=== PATIENT | female | born 1960 | race Caucasian/White ===

== ENCOUNTER → 2019-06-28 00:01 | Outpatient (BNVA) | payer OTHER, SELFPAY | PROVIDERS: Family Provider Family Medicine; PCP Nurse Practitioner; Visit Provider Nurse Practitioner Family | DX: I10 Essential (primary) hypertension (principal); E78.2 Mixed hyperlipidemia; R53.83 Other fatigue; Z79.899 Other long term (current) drug therapy; E55.9 Vitamin D deficiency, unspecified; J44.9 Chronic obstructive pulmonary disease, unspecified; J44.0 Chronic obstructive pulmonary disease with (acute) lower respiratory infection; J20.9 Acute bronchitis, unspecified | CPT/HCPCS: 80053; 80061; 82306; 83036; 84439; 84443; 84481; 85025 ==

== ENCOUNTER → 2019-07-04 00:01 | Outpatient (BNVA) | payer OTHER, SELFPAY | PROVIDERS: Family Provider Family Medicine; PCP Nurse Practitioner; Visit Provider Nurse Practitioner Family | DX: I10 Essential (primary) hypertension (principal); I44.7 Left bundle-branch block, unspecified; R09.89 Other specified symptoms and signs involving the circulatory and respiratory systems; I35.8 Other nonrheumatic aortic valve disorders | CPT/HCPCS: 81001 ==

== ENCOUNTER 2019-10-24 08:49 | Outpatient (CLI) | payer OTHER, SELFPAY ==
--- NOTE | 2019-10-24 08:56 | USCV_ITS ---
Delphine Mcmullen Age: 59 Gender: F : 1960 Exam Date: 10/24/2019 09:17 Ordering Phys: Katerina Warner MD ([email or web address]) Technologist: Jody Taylor Exam Location: [facility] [place] Indication: L BUNDLE BRANCH BLOCK BP: 141 / 67 HR: 73 Rhythm: Sinus Technical Quality: Fair MEASUREMENTS (Male / Female) Normal Values 2D ECHO LV Diastolic Diameter PLAX 4.1 cm 4.2 - 5.9 / 3.9 - 5.3 cm LV Systolic Diameter PLAX 2.6 cm IVS Diastolic Thickness 1.5 cm 0.6 - 1.0 / 0.6 - 0.9 cm IVS Systolic Thickness 1.3 cm LVPW Diastolic Thickness 0.8 cm 0.6 - 1.0 / 0.6 - 0.9 cm LVPW Systolic Thickness 1.2 cm LVOT Diameter 2.0 cm LV Ejection Fraction 2D Teich 64.9 % LV Ejection Fraction MOD 2C 62.6 % LV Ejection Fraction 2C AL 62.3 % LA Diameter 3.3 cm Aorta at Sinotubular Diameter 2.5 cm M-MODE LV Diastolic Diameter MM 4.3 cm 4.2 - 5.9 / 3.9 - 5.3 cm LV Systolic Diameter MM 2.2 cm LV Ejection Fraction MM Teich 80.6 % IVS Diastolic Thickness MM 1.1 cm 0.6 - 1.0 / 0.6 - 0.9 cm IVS Systolic Thickness MM 1.3 cm LVPW Diastolic Thickness MM 0.7 cm 0.6 - 1.0 / 0.6 - 0.9 cm LVPW Systolic Thickness MM 1.9 cm RV Diastolic Diameter MM 1.4 cm Aortic Annulus Diameter 2.6 cm LA Ao Ratio MM 1.3 MV E Point Septal Separation 0.4 cm DOPPLER AV Peak Velocity 193.0 cm/s LVOT Peak Velocity 128.0 cm/s AV Area Cont Eq vti 2.5 cm squared AV Area Cont Eq pk 2.1 cm squared MV Area PHT 3.0 cm squared Mitral E to A Ratio 0.8 MV E' Velocity 7.0 cm/s Mitral E to MV E' Ratio 5.4 Mitral E to LV E' Lateral Ratio 8.3 Mitral E to LV E' Septal Ratio 4.0 TR Peak Velocity 239.5 cm/s TR Peak Gradient 22.9 mmHg TR Mean Velocity 192.1 cm/s TR Mean Gradient 15.8 mmHg TR Velocity Time Integral 66.4 cm TV Peak E Velocity 64.0 cm/s Right Atrial Pressure 3.0 mmHg Pulmonary Artery Systolic Pressu 25.9 mmHg PV Peak Velocity 87.0 cm/s FINDINGS Left Ventricle Normal left ventricular cavity size. Increased left ventricular wall thickness. Normal left ventricular systolic function. Left ventricular ejection fraction is estimated at 65 %. No regional wall motion abnormalities. Abnormal septal motion consistent with conduction abnormality. Normal diastolic function. Right Ventricle Normal right ventricular size and systolic function. Right ventricular systolic pressure 25.9 mmHg. Right Atrium Right atrial pressure estimated at 3 mmHg. Left Atrium Normal left atrial size. Mitral Valve Structurally normal mitral valve. No mitral valve stenosis. Mild mitral valve regurgitation. Aortic Valve Structurally normal trileaflet aortic valve. No aortic valve stenosis. No aortic valve regurgitation. Tricuspid Valve Structurally normal tricuspid valve. Trace to mild tricuspid valve regurgitation. Pulmonic Valve No pulmonary valve stenosis. Trace pulmonary valve regurgitation. Pericardium No pericardial effusion. Normal-sized inferior vena cava. Aorta Normal-sized aortic root. CONCLUSIONS 1. Normal left ventricular cavity size and systolic function. Increased left ventricular wall thickness. Left ventricular ejection fraction is estimated at 65 %. No regional wall motion abnormalities. Normal diastolic function. 2. Normal right ventricular size and systolic function. 3. Pulmonary artery pressure estimated at 26 mmHg. 4. Mild mitral valve regurgitation. 5. No prior similar studies to compare. Katerina Warner MD (Electronically Signed) Final Date: 24 October 2019 13:24 S
== END 2019-10-24 08:50 | disposition home or self-care (01) ==
LOC: RAD 08:50
PROVIDERS: PCP Nurse Practitioner; Visit Provider Internal Medicine Cardiovascular Disease
DX: I44.7 Left bundle-branch block, unspecified (principal); I34.0 Nonrheumatic mitral (valve) insufficiency
CPT/HCPCS: 93306

== ENCOUNTER → 2019-11-06 10:30 | Outpatient (BNVA) | payer OTHER, SELFPAY | PROVIDERS: PCP Nurse Practitioner; Visit Provider Internal Medicine Cardiovascular Disease | DX: E78.5 Hyperlipidemia, unspecified (principal); J44.9 Chronic obstructive pulmonary disease, unspecified; F17.200 Nicotine dependence, unspecified, uncomplicated; R00.2 Palpitations; I10 Essential (primary) hypertension; I44.7 Left bundle-branch block, unspecified; F17.210 Nicotine dependence, cigarettes, uncomplicated | CPT/HCPCS: 80053; 80061; 84443 ==

== ENCOUNTER 2020-06-03 00:10 | Emergency (ER) | payer SELFPAY ==
[2020-06-03 00:20] VITALS: PULSE 81
--- NOTE | 2020-06-03 00:20 | ECG_ITS ---
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 Measurements Intervals [place] Rate: 76 P: 77 [place]: 155 QRS: -34 QRSD: 150 T: 84 QT: 429 QTc: 483 Interpretive Statements SINUS RHYTHM MARKED LEFT AXIS DEVIATION [QRS AXIS < -30] LEFT BUNDLE BRANCH BLOCK [120+ ms QRS DURATION, 80+ ms Q/S IN V1/V2, 85+ ms R IN I/aVL/V5/V6] Compared to ECG 01/04/2019 11:17:25 No significant changes Electronically Signed On 06-03-2020 19:47:24 CDT by Mary Brown M.D. [id number]
--- NOTE | 2020-06-03 00:20 | XR_ITS ---
WS: [id number] Portable AP upright chest, 06/03/2020 Clinical Data: cp Comparison: Portable chest, 01/04/2019. Findings: No nodules, masses or effusions are seen. The heart is normal. The pulmonary vascularity is not increased. No pneumonia or pneumothorax is seen. The aortic arch and descending aorta are minima lly tortuous. XR/XR chest 1V portable [id number] Impression: Atherosclerosis.
[2020-06-03 00:26] VITALS: BP 159/82; PULSE 82; RESP 18; TEMP 36.8; O2SAT 99; BMI 26.6
[2020-06-03 00:31] VITALS: BP 159/82; PULSE 85; RESP 18; O2SAT 97
--- NOTE | 2020-06-03 00:36 | ED_ITS ---
HPI - Chest Pain General: Chief Complaint: Chest Pain Stated Complaint: CP Time Seen by Provider: 06/03/20 00:19 Source: patient and EMS Mode of arrival: EMS Limitations: no limitations History of Present Illness: HPI narrative: 59-year-old female states she has been having chest pain started this evening at 11. States it started gradually and is a pressure type pain in the center of her chest. States that is since resolved and she will have any meds in the way. She states she has a history anxiety. She denies any shortness of breath. Denies any worsening proving factors. Denies any vomiting or diarrhea. She had some nausea over the last week. MD complaint: chest pain Associated symptoms: Deny abdominal pain, dyspnea, fever(s), nausea or vomiting Review of Systems Const: Denies: fever(s), chills, body aches or change in appetite Eyes: Denies: blurry vision or eye discomfort ENMT: Denies: throat pain or dental pain Card: Reports: chest pain Resp: Denies: dyspnea GI: Denies: abdominal pain, nausea, vomiting or diarrhea : Denies: dysuria Musc: Denies: neck pain or back pain Skin/Breast: Denies: rash Neuro: Denies: headache(s) Psych: Denies: depression Uri/Lymph: Denies: easy bruising All/Imm: Denies: urticaria PFS ED PFSH: Medical History (Updated 06/03/20 @ 01:49 by Alan Yates MD) COPD (chronic obstructive pulmonary disease) Depressive disorder Essential hypertension Family history of ischemic heart disease and other diseases of the circulatory system Left bundle branch block (LBBB) Surgical History Status post cholecystectomy Status post hysterectomy Family History Father Diabetes Social History Smoking and tobacco status: current every day smoker Alcohol intake: never Physical Exam Const: COMMON NORMALS: no acute distress, patient oriented x3 and healthy appearing HENMT: COMMON NORMALS: normocephalic and atraumatic HEAD & SCALP: normocephalic and atraumatic Eye: COMMON NORMALS: Equal, round and reactive pupils present and EOMs intact bilaterally PUPIL: Yes Equal, round and reactive pupils present Neck/C-Spine: COMMON NORMALS: full ROM and supple Chest: COMMONS NORMALS: normal inspection of the chest and normal palpation of entire chest wall Resp: COMMON NORMALS: normal respiratory effort, No retractions, No use of accessory muscles and clear to auscultation bilaterally AUSCULTATION: clear to auscultation bilaterally Cardio: COMMON NORMALS: regular rate, regular rhythm and No murmurs present (Cardio) RATE: regular rate RHYTHM: regular rhythm GI: COMMON NORMALS: Normal to inspection, nondistended, normoactive bowel sounds present, Soft to palpation, non-tender and no masses PALPATION: Yes Soft to palpation Extremity: COMMON NORMALS: normal to inspection and full ROM Neuro: COMMON NORMALS: patient oriented x3, moves all extremities and no focal motor deficits Psych: COMMON NORMALS: mental status grossly normal, Normal thought process present and cooperative THOUGHT PROCESS: Normal thought process present Skin: COMMON NORMALS: no rashes or lesions noted and no wounds GENERAL SKIN EXAM: no rashes or lesions noted Course Vital Signs: Vital signs: Vital Signs Temperature 98.2 F 06/03/20 00:26 Pulse Rate 85 06/03/20 00:31 Respiratory Rate 18 06/03/20 00:31 Blood Pressure 159/82 06/03/20 00:31 Pulse Oximetry 97 06/03/20 00:31 MDM - Chest Pain MDM Narrative: Medical decision making narrative: Patient presents here with chest pain that is atypical in nature. Initial repeat troponins here are both negative. She had some nausea as well but no abdominal pain no abdominal tenderness. Her other lab work is all normal. She has no signs of acute coronary syndrome or pulmonary embolism. She has no signs of aortic dissection. Patient is stable for discharge will place on Zofran. She is to follow-up with PCP in 3 to 5 days return if worsening. Lab Data: Labs: Lab Results 06/02/20 06/02/20 06/02/20 Range/Units 23:05 23:05 23:05 WBC 10.1 H (4.0-10.0) 10^3/ uL RBC 4.67 (4.1-5.3) 10^6/u L Hgb 12.9 (11.5-15.3) g/dL Hct 39.2 (37.0-47.0) % MCV 83.9 (81-99) fL MCH 27.6 L (28.0-34.0) pg MCHC 32.9 (30.0-36.0) g/dL RDW 12.6 (12.1-15.1) % Plt Count 439 H (130-400) 10^3/c mm MPV 9.6 (7.4-10.4) fL Neut % (Auto) 58.4 % Lymph % (Auto) 30.7 % [place] % (Auto) 7.6 % Eos % (Auto) 2.4 % Baso % (Auto) 0.5 % Neut # (Auto) 5.88 (1.8-7.7) 10^3/u L Lymph # (Auto) 3.1 (0.8-4.8) 10^3/u L [place] # (Auto) 0.8 (0.2-0.9) 10^3/u L Eos # (Auto) 0.2 (0.0-0.8) 10^3/u L Baso # (Auto) 0.1 (0.0-0.1) 10^3/u L Nucleated RBC % (a uto) 0 % Nucleated RBCs # 0.0 /100WBC Sodium 134 L (136-145) mmol/L Potassium 3.1 L (3.5-5.1) mmol/L Chloride 95 L (98-107) mmol/L Carbon Dioxide 23 (22-29) mmol/L Anion Gap 19.1 H (5-19) BUN 13 (6-20) mg/dL Creatinine 1.0 H (0.5-0.9) mg/dL GFR Calculation 56.7 L (90-130) mL/min Glucose 218 H (65-115) mg/dL Calculated Osmolal ity 285 (285-295) mOsm/k g Calcium 8.8 (8.5-10.5) mg/dL Total Bilirubin 0.2 (0.15-1.2) mg/dL AST 14 (0-32) U/L ALT 15 (0-33) U/L Alkaline Phosphata se 78 (35-105) IU/L Troponin T Baselin e 7 (0-10) ng/L Troponin T 120 Min [place] (0-10) ng/L Delta Troponin T (0-10) ABS# Total Protein 6.5 L (6.6-8.7) g/dL Albumin 3.8 (3.5-5.2) g/dL Globulin 2.7 (1.3-4.6) g/dL Lipase 33 (13-60) U/L 06/03/20 Range/Units 01:07 WBC (4.0-10.0) 10^3/ uL RBC (4.1-5.3) 10^6/u L Hgb (11.5-15.3) g/dL Hct (37.0-47.0) % MCV (81-99) fL MCH (28.0-34.0) pg MCHC (30.0-36.0) g/dL RDW (12.1-15.1) % Plt Count (130-400) 10^3/c mm MPV (7.4-10.4) fL Neut % (Auto) % Lymph % (Auto) % [place] % (Auto) % Eos % (Auto) % Baso % (Auto) % Neut # (Auto) (1.8-7.7) 10^3/u L Lymph # (Auto) (0.8-4.8) 10^3/u L [place] # (Auto) (0.2-0.9) 10^3/u L Eos # (Auto) (0.0-0.8) 10^3/u L Baso # (Auto) (0.0-0.1) 10^3/u L Nucleated RBC % (a uto) % Nucleated RBCs # /100WBC Sodium (136-145) mmol/L Potassium (3.5-5.1) mmol/L Chloride (98-107) mmol/L Carbon Dioxide (22-29) mmol/L Anion Gap (5-19) BUN (6-20) mg/dL Creatinine (0.5-0.9) mg/dL GFR Calculation (90-130) mL/min Glucose (65-115) mg/dL Calculated Osmolal ity (285-295) mOsm/k g Calcium (8.5-10.5) mg/dL Total Bilirubin (0.15-1.2) mg/dL AST (0-32) U/L ALT (0-33) U/L Alkaline Phosphata se (35-105) IU/L Troponin T Baselin e (0-10) ng/L Troponin T 120 Min [place] 11.38 H (0-10) ng/L Delta Troponin T 4.38 (0-10) ABS# Total Protein (6.6-8.7) g/dL Albumin (3.5-5.2) g/dL Globulin (1.3-4.6) g/dL Lipase (13-60) U/L Imaging Data^: CXR: Attestation: I personally reviewed and interpreted this imaging study as follows: My impression: no acute abnormality EKG Data^: EKG 1: Attestation: I personally reviewed and interpreted this EKG as follows: EKG interpretation date: 06/03/20 EKG interpretation time: 00:18 Interpretation: nsr hr [address] or t wave abnormalities qrs 150 qtc 459 unchanged from previous Discharge Plan Discharge Patient Disposition: Home Clinical Impression: Nausea Chest pain Qualifiers: Chest pain type: unspecified Qualified Code(s): R07.9 - Chest pain, unspecified Condition: Stable Prescriptions: New ondansetron 4 mg tablet,disintegrating 4 mg PO Q6H PRN (Reason: nausea and vomiting) Qty: 14 RF: 0 No Action albuterol sulfate [ProAir HFA] 90 mcg/actuation HFA aerosol inhaler 1 puff INHALATION ONCE 90 Days Qty: 8.5 RF: 1 clonidine HCl 0.1 mg tablet 0.1 mg PO DAILY PRN (Reason: anxiety) 30 Days Qty: 30 RF: 0 prednisone 10 mg tablet See Rx Instructions PO DAILY Qty: 53 RF: 0 benzonatate [Tessalon Perles] 100 mg capsule 100 mg PO BID PRN (Reason: cough) 30 Days Qty: 30 RF: 0 ascorbate calcium (vitamin C) 500 mg tablet 500 mg PO BID 30 Days Qty: 60 RF: 0 levofloxacin 750 mg tablet 750 mg PO DAILY 7 Days Qty: 7 RF: 0 fluticasone propion-salmeterol [Advair Diskus] 100-50 mcg/dose blister with device 1 inh inhalation BID 30 Days Qty: 60 RF: 0 cholecalciferol (vitamin D3) 125 mcg (5,000 unit) capsule 125 mcg PO DAILY 30 Days Qty: 30 RF: 0 rosuvastatin [Crestor] 20 mg tablet 20 mg PO DAILY Qty: 90 RF: 0 losartan 100 mg tablet 100 mg PO DAILY Qty: 90 RF: 1 amlodipine 10 mg tablet 10 mg PO DAILY 30 Days Qty: 30 RF: 2 hydrochlorothiazide 12.5 mg capsule See Rx Instructions .ROUTE .COMPLEX Qty: 30 RF: 1 Discharge Orders: Discharge ED (Routine); Ordered 06/03/20 Ordered By: Alan Yates Referrals: ADAM Tamayo, NAILING MACHINE OPERATOR [Primary Care Provider] - 1-3 days Discharge Diet: Advance as tolerated Discharge Activity: Resume usual activity Patient Instructions: Chest Pain (ED) Coding Level of Care Code ED Director Of Informatics for Ana María Fwd Exam Comprehensive
[2020-06-03 00:42] LABS: Basophils # 0.1 10^3/uL (0.0-0.1); Basophils % 0.5 %; Eosinophils # 0.2 10^3/uL (0.0-0.8); Eosinophils % 2.4 %; Hematocrit 39.2 % (37.0-47.0); Hemoglobin 12.9 g/dL (11.5-15.3); Lymphocytes # 3.1 10^3/uL (0.8-4.8); Lymphocytes % 30.7 %; Mean Corpuscular HGB Conc 32.9 g/dL (30.0-36.0); Mean Corpuscular Hemoglobin 27.6 pg (28.0-34.0); Mean Corpuscular Volume 83.9 fL (81-99); Mean Platelet Volume 9.6 fL (7.4-10.4); Monocytes # 0.8 10^3/uL (0.2-0.9); Monocytes % 7.6 %; Neutrophils # 5.88 10^3/uL (1.8-7.7); Neutrophils % 58.4 %; Nucleated Red Blood Cells % 0 %; Platelet Count 439 10^3/cmm (130-400); Red Blood Count 4.67 10^6/uL (4.1-5.3); Red Cell Distribution Width 12.6 % (12.1-15.1); White Blood Count 10.1 10^3/uL (4.0-10.0)
[2020-06-03 01:05] LABS: Alanine Aminotransferase 15 U/L (0-33); Albumin Level 3.8 g/dL (3.5-5.2); Alkaline Phosphatase 78 IU/L (35-105); Anion Gap 19.1 (5-19); Aspartate Amino Transferase 14 U/L (0-32); Blood Urea Nitrogen 13 mg/dL (6-20); Calcium 8.8 mg/dL (8.5-10.5); Carbon Dioxide 23 mmol/L (22-29); Chloride 95 mmol/L (98-107); Globulin 2.7 g/dL (1.3-4.6); Glomerular Filtration Rate 56.7 mL/min (90-130); Glucose 218 mg/dL (65-115); Lipase 33 U/L (13-60); Osmolality Calculated 285 mOsm/kg (285-295); Potassium 3.1 mmol/L (3.5-5.1); Sodium 134 mmol/L (136-145); Total Bilirubin 0.2 mg/dL (0.15-1.2); Total Protein 6.5 g/dL (6.6-8.7)
[2020-06-03 01:08] LABS: Troponin(5th) Baseline 7 ng/L (0-10)
[2020-06-03 01:32] LABS: Troponin 5 2HR 11.38 ng/L (0-10); Troponin 5 2HR Delta 4.38 ABS# (0-10)
[2020-06-03 02:07] VITALS: BP 121/75; PULSE 70; RESP 25; O2SAT 95
== END 2020-06-03 02:05 | disposition home or self-care (01) ==
PROVIDERS: Emergency Provider Emergency Medicine; PCP Nurse Practitioner Family
DX: R07.9 Chest pain, unspecified (principal); R11.0 Nausea; J44.9 Chronic obstructive pulmonary disease, unspecified; I10 Essential (primary) hypertension; F17.210 Nicotine dependence, cigarettes, uncomplicated
CPT/HCPCS: 36415; 71045; 80053; 83690; 84484; 85025; 93005; 99283

== ENCOUNTER → 2021-02-18 16:33 | Outpatient (BNVA) | payer SELFPAY | PROVIDERS: PCP Nurse Practitioner Family; Visit Provider Nurse Practitioner Family | DX: D64.9 Anemia, unspecified (principal); I10 Essential (primary) hypertension; Z79.899 Other long term (current) drug therapy; Z87.19 Personal history of other diseases of the digestive system | CPT/HCPCS: 80053; 81003; 82306; 82607; 82728; 83036; 83550; 83921; 84425; 84439; 84443; 85025; 87522 ==

== ENCOUNTER 2021-04-17 13:55 | Observation (INO) | payer MEDICAID, SELFPAY ==
[2021-04-17] VITALS (8 sets, daily range): BP systolic 142–166; BP diastolic 76–89; PULSE 85–99; RESP 18–31; TEMP 37; O2SAT 92–99; BMI 21.4
--- NOTE | 2021-04-17 13:58 | W.ED.SOB ---
HPI - SOB/Dyspnea General: Chief Complaint: ER Hold Stated Complaint: SOB Time Seen by Provider: 04/17/21 13:57 History of Present Illness: HPI Narrative: Ms Mcmullen is a 60-year-old lady with significant past medical history of tobaccoism and COPD who presents emergency department due to shortness of breath. She reports a history of COPD exacerbation last month which was rather severe. She had improvement with steroids and antibiotics and leaving her current residence to stay with family. She has been home for about a week and starting 2 days ago has had progressive onset now severe shortness of breath cough consistent with prior COPD exacerbation. She has tried home breathing treatments and was placed yesterday on steroids and doxycycline without significant improvement. She does not typically require oxygen however now requires oxygen and EMS found her to be in respiratory distress with oxygen saturations in the 80s. She denies associated fevers or other infectious symptoms. She is not vaccinated against Covid but denies sick contacts. Intensity of symptoms is moderate to severe. Course has been worsening. No other specific changes in health, exacerbating, relieving factors identified. Pertinent past history: COPD Onset (ago): day(s) Context: other Timing: constant and progressively worsening Severity: severe Exacerbating factors: exertion and coughing Relieving factors: nothing Known history of: COPD Treatment prior to arrival: oxygen and other Review of Systems General: Reports: 10 or more systems reviewed and unremarkable except in HPI and below PFSH ED PFSH: Medical History Abdominal pain Anemia Anxiety and depression COPD (chronic obstructive pulmonary disease) Depressive disorder Embolism of kidney Essential hypertension Family history of ischemic heart disease and other diseases of the circulatory system H/O chronic hepatitis riboviran, interferon Left bundle branch block (LBBB) Lower respiratory infection Medication management Surgical History Status post cholecystectomy Status post hysterectomy Family History Father Diabetes Social History Smoking and tobacco status: current every day smoker Alcohol intake: never Physical Exam Const: COMMON NORMALS: alert GENERAL APPEARANCE: cooperative, well developed and ill appearing HENMT: COMMON NORMALS: normocephalic and atraumatic HEAD & SCALP: normocephalic and atraumatic THROAT: posterior oropharynx normal Eye: COMMON NORMALS: conjunctivae normal CONJUNCTIVA: Yes conjunctivae normal SCLERA: sclerae normal Neck/C-Spine: COMMON NORMALS: supple GENERAL: Yes trachea midline Resp: EFFORT & INSPECTION: Yes tachypneic AUSCULTATION: rhonchi lower bilaterally and diminished lung sounds Cardio: COMMON NORMALS: regular rate and regular rhythm RATE: regular rate RHYTHM: regular rhythm GI: COMMON NORMALS: Soft to palpation PALPATION: Yes Soft to palpation and No Tenderness to palpation present (GI) Extremity: GENERAL: Yes normal exam except as noted and No edema Neuro: COMMON NORMALS: moves all extremities SENSORIUM/ORIENTATION: Yes alert and No Orientation impaired Psych: COMMON NORMALS: mental status grossly normal and Normal thought process present THOUGHT PROCESS: Normal thought process present Course ED course: - Patient was seen and evaluated by me at bedside - Patient placed on cardiac monitors, IV access obtained - Initial evaluation notable for respiratory distress as above - RT treatment, steroids ordered - Labs notable for leukocytosis, thrombocytosis. Metabolic panel with hypokalemia, replenishment ordered. Evidence of dehydration also present. - Imaging notable for right mid and lower lobe infiltrate on chest x-ray. - Antibiotics and fluid bolus given - Given degree of tachypnea somewhat out of proportion as well as patient not qualifying for WELL's then PERC criteria D-dimer ordered and was elevated. CTA notable for mediastinal mass resulting in atelectasis. - Upon serial reexamination after treatment the patient was mildly improved though still ill appearing with new oxygen requirement - Based on patient history, evaluation, labs, and imaging as interpreted the most likely cause of the patient's condition is multifactorial including mediastinal/lung mass, COPD exacerbation, pneumonia which may be postobstructive - The results of ED evaluation were discussed with the patient including plan for admission due to requirement for level of care not available if discharged to prevent significant worsening/deterioration. - Hospitalist service contacted and agreed that the patient - Patient was admitted without further deterioration or significant events. Note: Click bubbles or prepopulated peralta in note writing are used for assistance with data collection and billing and are inherently more limited than narrative and other text portions of this note. Please use narrative for additional clinical history and defer to narrative/free test for any case of contradictory information. If information appears in only free text or click bubble it should be considered present or absent as reported. Please contact note com writer for clarifications of clinical information or contradictory information. MDM is a brief summary, contradictory or erroneous seeming information should be clarified and full note should be reviewed. Vital Signs: Vital signs: Vital Signs Temperature 97.9 F 04/18/21 12:12 Pulse Rate 78 04/18/21 13:42 Respiratory Rate 18 04/18/21 13:42 Blood Pressure 121/64 04/18/21 13:42 Pulse Oximetry 96 04/18/21 13:42 MDM - SOB/Dyspnea Medical Decision Making 60-year-old lady presenting with respiratory distress. Patient found to have likely pneumonia as well as a mediastinal/lung mass resulting in right middle lobe bronchial occlusion. Given patient's symptoms I believe that there is a likelihood of postobstructive pneumonia as well as COPD exacerbation. Patient admitted for further investigation and management. Medical Records I reviewed the patient's medical records. Lab Data I reviewed the patient's lab results. : 04/18/21 03:35 04/18/21 03:35 Labs/Radiology: Radiology Impressions Chest X-Ray 04/17/21 14:09 IMPRESSION: Opacification noted in the right mid and lower lung zone suggestive of pneumonia. Chest CTA 04/17/21 16:55 IMPRESSION: 1. No pulmonary embolism. 2. Confluent soft tissue density in the right upper mediastinum and hilum producing bronchial narrowing and complete right middle lobe atelectasis. This finding is highly suspicious for a malignant neoplasm. 3. 12 x 9 mm spiculated nodule in the left upper lobe is suspicious for malignancy. Possible pulmonary metastasis or primary neoplasm. 4. Mediastinal lymphadenopathy. 5. Near occlusion at the origin of the left common carotid artery. 6. Incidental findings above. ADDENDUM: 04/17/21 [id number] THIS REPORT CONTAINS FINDINGS THAT MAY BE CRITICAL TO PATIENT CARE. The findings were verbally communicated via telephone conference with Dr. Eaton at 6:43 PM ADJUNCT INSTRUCTOR IN ECONOMICS on 04/17/2021. The findings were acknowledged and understood. Laboratory Results WBC 14.5 10^3/uL (4.0-10.0) H 04/17/21 14:13 RBC 4.98 10^6/uL (4.1-5.3) 04/17/21 14:13 Hgb 13.3 g/dL (11.5-15.3) 04/17/21 14:13 Hct 39.9 % (37.0-47.0) 04/17/21 14:13 MCV 80.1 fl (81-99) L 04/17/21 14:13 MCH 26.7 pg (28.0-34.0) L 04/17/21 14:13 MCHC 33.3 g/dL (30.0-36.0) 04/17/21 14:13 RDW 12.7 % (12.1-15.1) 04/17/21 14:13 Plt Count 547 10^3/cmm (130-400) H 04/17/21 14:13 MPV 10.5 fL (7.4-10.4) H 04/17/21 14:13 Neut % (Auto) 91.2 % 04/17/21 14:13 Lymph % (Auto) 5.1 % 04/17/21 14:13 [place] % (Auto) 3.0 % 04/17/21 14:13 Eos % (Auto) 0.0 % 04/17/21 14:13 Baso % (Auto) 0.1 % 04/17/21 14:13 Neut # (Auto) 13.25 10^3/uL (1.8-7.7) H 04/17/21 14:13 Lymph # (Auto) 0.7 10^3/uL (0.8-4.8) L 04/17/21 14:13 [place] # (Auto) 0.4 10^3/uL (0.2-0.9) 04/17/21 14:13 Eos # (Auto) 0.0 10^3/uL (0.0-0.8) 04/17/21 14:13 Baso # (Auto) 0.0 10^3/uL (0.0-0.1) 04/17/21 14:13 Nucleated RBC % (auto) 0 % 04/17/21 14:13 Nucleated RBCs # 0.0 /100WBC 04/17/21 14:13 D-Dimer 3.48 ug/mIFEU (0-0.59) H 04/17/21 16:16 Specimen Type Arterial 04/17/21 14:45 Sample Site Radial, right 04/17/21 14:45 ABG pH 7.67 (7.35-7.45) H* 04/17/21 14:45 ABG pCO2 18.2 mmHg (35-45) L* 04/17/21 14:45 ABG pO2 101.0 mmHg (80.0-100.0) H 04/17/21 14:45 ABG HCO3 20.9 mmol/L (22-26) L 04/17/21 14:45 ABG Base Excess 2.8 mmol/L (-2.0-2.0) H 04/17/21 14:45 Mckay Test Pos 04/17/21 14:45 Hematocrit 42.7 % (37-47) 04/17/21 14:45 O2 Delivery Device Nc 04/17/21 14:45 O2 Liters/Min 3.0 % 04/17/21 14:45 FiO2 32.0 % 04/17/21 14:45 Ripper Operator ID glc 04/17/21 14:45 Sodium 133 mmol/L (136-145) L 04/17/21 15:03 Potassium 2.5 mmol/L (3.5-5.1) L* 04/17/21 15:03 Chloride 96 mmol/L (98-107) L 04/17/21 15:03 Carbon Dioxide 19 mmol/L (22-29) L 04/17/21 15:03 Anion Gap 20.5 (5-19) H 04/17/21 15:03 BUN 10 mg/dL (8-23) 04/17/21 15:03 Creatinine 1.0 mg/dL (0.5-0.9) H 04/17/21 15:03 GFR Calculation 56.6 mL/min (90-130) L 04/17/21 15:03 Glucose 158 mg/dL (65-115) H 04/17/21 15:03 Estimat Average Glucose 111 04/17/21 14:13 Hemoglobin A1c 5.5 % (4.0-6.0) 04/17/21 14:13 Calculated Osmolality 278 mOsm/kg (285-295) L 04/17/21 15:03 Lactic Acid 1.2 mmol/L (0.5-2.2) 04/17/21 15:57 Calcium 9.0 mg/dL (8.5-10.5) 04/17/21 15:03 Magnesium 1.9 mg/dL (1.7-2.3) 04/17/21 15:03 Total Bilirubin 0.7 mg/dL (0.15-1.2) 04/17/21 15:03 AST 22 U/L (0-32) 04/17/21 15:03 ALT 29 U/L (0-33) 04/17/21 15:03 Alkaline Phosphatase 162 IU/L (35-105) H 04/17/21 15:03 Troponin T Baseline 17 ng/L (0-10) H 04/17/21 15:03 Troponin T 120 Minute 18.03 ng/L (0-10) H 04/17/21 17:45 Delta Troponin T 1.03 ABS# (0-10) 04/17/21 17:45 C-Reactive Protein 234.3 mg/L (0.0-4.9) H 04/17/21 15:03 NT-Pro-B Natriuret Pep 2459 pg/mL (0-125) H 04/17/21 15:03 Total Protein 7.2 g/dL (6.6-8.7) 04/17/21 15:03 Albumin 3.4 g/dL (3.5-5.2) L 04/17/21 15:03 Globulin 3.8 g/dL (1.3-4.6) 04/17/21 15:03 Procalcitonin 0.19 ng/mL (0-0.5) 04/17/21 15:03 TSH 0.57 uIU/mL (0.27-4.20) 04/17/21 15:03 SARS-CoV-2 Ag (Rapid) Negative (Negative) 04/17/21 15:10 EKG Data EKG 1: I personally reviewed and interpreted this EKG as follows: EKG Interpretation Date: 04/17/21 EKG interpretation time: 14:29 Interpretation: Twelve-lead EKG shows a regular rhythm at a rate of 86. PA interval 153, QRS duration 150, QTc 485. Left axis deviation. Interpretation: Sinus rhythm. Left bundle branch block. Discharge Plan Discharge Patient Disposition: Admitted As Inpatient Admit Provider: Ta Fierro Clinical Impression: COPD exacerbation, Pneumonia, Mass of mediastinum, Right middle lobe pulmonary nodule Condition: Stable Coding Level of Care Code ED Sewer And Cutter Finger Buff Material for Chg Fwd Exam Comprehensive
--- NOTE | 2021-04-17 14:09 | XRR_ITS ---
PROCEDURE INFORMATION: Exam: XR Chest Exam date and time: 04/17/2021 2:09 PM Age: 60 years old Clinical indication: Shortness of breath; Additional info: SOB TECHNIQUE: Imaging protocol: XR of the chest. Views: 1 view. COMPARISON: CR XR chest 1V portable [id number] 06/03/2020 12:32 AM FINDINGS: Lungs: Opacification noted in the right mid and lower lung zone suggestive of pneumonia. Pleural spaces: Unremarkable. No pleural effusion. No pneumothorax. Heart/Mediastinum: No cardiomegaly. Bones/joints: No acute fracture. XR/XR chest 1V portable [id number] IMPRESSION: Opacification noted in the right mid and lower lung zone suggestive of pneumonia.
--- NOTE | 2021-04-17 14:09 | ECG_ITS ---
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 Measurements Intervals [place] Rate: 86 P: 69 [place]: 153 QRS: -46 QRSD: 150 T: 74 QT: 441 QTc: 530 Interpretive Statements SINUS RHYTHM LEFT AXIS DEVIATION [QRS AXIS < -30] LEFT BUNDLE BRANCH BLOCK [120+ ms QRS DURATION, 80+ ms Q/S IN V1/V2, 85+ ms R IN I/aVL/V5/V6] Compared to ECG 06/03/2020 00:18:57 No significant changes Electronically Signed On 04-19-2021 8:54:05 [employer]IG[employer] by Moncho Baltazar M.D. [id number]
[2021-04-17 14:45] LABS: Basophils % 0.1 %; Hematocrit 39.9 % (37.0-47.0); Hemoglobin 13.3 g/dL (11.5-15.3); Lymphocytes # 0.7 10^3/uL (0.8-4.8); Lymphocytes % 5.1 %; Mean Corpuscular HGB Conc 33.3 g/dL (30.0-36.0); Mean Corpuscular Hemoglobin 26.7 pg (28.0-34.0); Mean Corpuscular Volume 80.1 fl (81-99); Mean Platelet Volume 10.5 fL (7.4-10.4); Monocytes # 0.4 10^3/uL (0.2-0.9); Neutrophils # 13.25 10^3/uL (1.8-7.7); Neutrophils % 91.2 %; Nucleated Red Blood Cells % 0 %; Platelet Count 547 10^3/cmm (130-400); Red Blood Count 4.98 10^6/uL (4.1-5.3); Red Cell Distribution Width 12.7 % (12.1-15.1); White Blood Count 14.5 10^3/uL (4.0-10.0)
[2021-04-17] MEDS: sodium chloride 0.9% 500 ML IV (14:46)
[2021-04-17 15:00] LABS: Arterial Blood Gas Hematocrit 42.7 % (37-47); Base Excess ABG 2.8 mmol/L (-2.0-2.0); Blood Gas Allen Test Pos; Blood Gas Operator Identificat glc; Blood Gas Sample Site Radial, right; Blood Gas Sample Type Arterial; HCO3 ABG 20.9 mmol/L (22-26); Oxygen Device NC
[2021-04-17 15:01] LABS: ABG PCO2 18.2 mmHg (35-45); ABG PH Result 7.67 (7.35-7.45)
[2021-04-17 15:42] LABS: Troponin(5th) Baseline 17 ng/L (0-10)
[2021-04-17 15:46] LABS: NT Pro B Type Natriuretic Pept 2459 pg/mL (0-125); Procalcitonin 0.19 ng/mL (0-0.5)
[2021-04-17] MEDS: levofloxacin-dextrose 5 % 750 MG/150 ML PREMIX 100 MG IV (15:48)
[2021-04-17 15:49] LABS: SARS Covid-2 Antigen Negative (Negative)
--- NOTE | 2021-04-17 15:58 | PC.NURSE ---
levaquin started after blood cultures drawn at this time.
[2021-04-17 15:59] LABS: Alanine Aminotransferase 29 U/L (0-33); Aspartate Amino Transferase 22 U/L (0-32); Blood Urea Nitrogen 10 mg/dL (8-23); Globulin 3.8 g/dL (1.3-4.6); Total Bilirubin 0.7 mg/dL (0.15-1.2); Total Protein 7.2 g/dL (6.6-8.7)
[2021-04-17 16:54] LABS: D Dimer 3.48 ug/mIFEU (0-0.59)
--- NOTE | 2021-04-17 16:55 | CTR_ITS ---
PROCEDURE INFORMATION: Exam: CTA Chest With Contrast Exam date and time: 04/17/2021 4:55 PM Age: 60 years old Clinical indication: Shortness of breath; Additional info: SOB, hypoxemia, ddimer elevated TECHNIQUE: Imaging protocol: Computed tomographic angiography of the chest with contrast. 3D rendering (Not supervised by radiologist): MIP and/or 3D reconstructed images were created by the technologist. Radiation optimization: All CT scans at this facility use at least one of these dose optimization techniques: automated exposure control; mA and/or kV adjustment per patient size (includes targeted exams where dose is matched to clinical indication); or iterative reconstruction. Contrast material: OMNI 350; Contrast volume: 65 ml; Contrast route: INTRAVENOUS (IV); COMPARISON: CR (CHEST, ) 04/17/2021 2:35 PM RADIATION DOSE METRICS: Total DLP (mGy-cm): 475.51 FINDINGS: Pulmonary arteries: The pulmonary arteries are adequately opacified for evaluation to the subsegmental level. There is no filling defect to suggest embolism. Aorta: There is moderate aortic atherosclerotic disease. There is ulcerated soft plaque in the upper abdominal aorta. Great vessels off aortic arch: There is high-grade stenosis with near occlusion of the left common carotid artery origin. See coronal series 601, image 29. 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 Lungs: There is a spiculated noncalcified left upper lobe pulmonary nodule measuring 12 x 9 mm on axial series 3, image 20. There is no consolidation. There is marked bronchial wall thickening and ill-defined peribronchial soft tissue density and bronchial narrowing in the central right upper lobe and right middle lobe. There is occlusion of right middle lobe bronchi and complete atelectasis of the right middle lobe. Pleural spaces: There is no pleural effusion or pneumothorax. Heart: Heart size is normal. There is trace pericardial effusion. There is mild coronary artery calcification. Mediastinal space: There is abnormal confluent soft tissue density in the mediastinum extending from the right paratracheal region through the infrahilar region, surrounding and mildly narrowing the right main and lower lobe bronchi. Lymph nodes: There is an enlarged AP window lymph node measuring 18 x 14 mm on series 2, image 182. Bones/joints: Bones are unremarkable. Soft tissues: The extrathoracic soft tissues are unremarkable. CT/CT angio chest PE protcl [id number] IMPRESSION: 1. No pulmonary embolism. 2. Confluent soft tissue density in the right upper mediastinum and hilum producing bronchial narrowing and complete right middle lobe atelectasis. This finding is highly suspicious for a malignant neoplasm. 3. 12 x 9 mm spiculated nodule in the left upper lobe is suspicious for malignancy. Possible pulmonary metastasis or primary neoplasm. 4. Mediastinal lymphadenopathy. 5. Near occlusion at the origin of the left common carotid artery. 6. Incidental findings above.
[2021-04-17 16:57] LABS: Anion Gap 20.5 (5-19); Carbon Dioxide 19 mmol/L (22-29); Chloride 96 mmol/L (98-107); Potassium 2.5 mmol/L (3.5-5.1); Sodium 133 mmol/L (136-145)
[2021-04-17 16:58] LABS: C Reactive Protein 234.3 mg/L (0.0-4.9); Creatinine Clr Calc Pharmacy 52.4163; Glomerular Filtration Rate 56.6 mL/min (90-130); Glucose 158 mg/dL (65-115); Osmolality Calculated 278 mOsm/kg (285-295)
[2021-04-17 16:59] LABS: Albumin Level 3.4 g/dL (3.5-5.2)
[2021-04-17 17:00] LABS: Alkaline Phosphatase 162 IU/L (35-105)
[2021-04-17 17:16] LABS: Lactic Sepsis W/Reflex 1.2 mmol/L (0.5-2.2)
[2021-04-17 17:25] LABS: Magnesium 1.9 mg/dL (1.7-2.3)
[2021-04-17] MEDS: lidocaine 1% 5 ML in potassium chloride premix 100 ML 25 ML IV (17:26)
[2021-04-17] MEDS: potassium chloride oral liq 20 mEq/15 mL UDC 40 MEQ PO (17:27)
[2021-04-17] MEDS: iohexol 350 mg/mL 100 mL Btl IV (17:50)
[2021-04-17 18:40] LABS: Troponin 5 2HR 18.03 ng/L (0-10)
[2021-04-17 18:42] LABS: Troponin 5 2HR Delta 1.03 ABS# (0-10)
[2021-04-17] MEDS: LORazepam 2 mg/mL INJ 1 mL 0.5 MG IVP (20:19)
--- NOTE | 2021-04-17 20:47 | P.HP_ITS ---
Providers/Chief Complaint Primary Care Provider: ISIDRA Martinez Chief Complaint: SOB History of Present Illness Delphine Mcmullen is a 60 year old female with a past medical history of COPD, active smoker, hypertension, anxiety and depression, history of chronic hepatitis, chronic left BBB, history of chronic kidney disease, who presents [facility] due to progressive increasing shortness of breath, and productive cough. Patient has not been vaccinated for COVID, no history of flu vaccination, no no history of exposure. She tells me that over the last few days she has had increasingly short of breath, she does not use oxygen at home, increase shortness of breath with exertion, no lower extreme edema, no orthopnea, no paroxysmal nocturnal dyspnea, no chest pain, has had increased nonproductive cough, no fevers reported Review of Systems Const: Reports: fatigue and malaise; Denies: fever(s) or chills Eyes: Denies: change in vision or blurry vision ENMT: Denies: nasal congestion Card: Denies: chest pain or palpitations Resp: Reports: dyspnea and non-productive cough; Denies: productive cough or wheezing GI: Denies: abdominal pain, nausea, vomiting, hematemesis, diarrhea, cons tipation, hematochezia or melena : Denies: flank pain, dysuria or urinary frequency Musc: Denies: neck pain or back pain Skin/Breast: Denies: rash Neuro: Denies: headache(s), dizziness or vertigo Endo: Denies: polyuria or polydipsia Medications/Allergies Home Medications Medication Instructions Recorded Confirmed Last Taken Type albuterol sulfate 90 mcg/actuation 1 puff INHALATION ONCE 90 Days 05/05/20 04/17/21 Unknown Rx aerosol inhaler (ProAir HFA) #8.5 gm ascorbate calcium (vitamin C) 500 500 mg PO BID 30 Days #60 tab 05/05/20 04/17/21 Unknown Rx mg tablet losartan 100 mg tablet 100 mg PO DAILY #180 tab 08/19/20 04/17/21 Unknown Rx tiotropium bromide 18 mcg capsule 1 cap INHALATION DAILY #30 inh 01/20/21 04/17/21 Unknown Rx with inhalation device (Spiriva with HandiHaler) citalopram 10 mg tablet 10 mg PO ONCE 30 Days #30 tab 02/18/21 04/17/21 Unknown Rx prednisone 20 mg tablet 40 mg PO .Daily in A.M. 5 Days #10 04/14/21 04/17/21 U nknown Rx tab doxycycline hyclate 100 mg capsule 100 mg PO BID #20 cap 04/16/21 04/17/21 Unk nown Rx amlodipine 10 mg tablet 10 mg PO DAILY 04/17/21 04/17/21 Unknown History clonidine HCl 0.1 mg tablet 0.1 mg PO BID 04/17/21 04/17/21 Unknown History hydrochlorothiazide 12.5 mg capsule 12.5 mg PO DAILY 04/17/21 04/17/21 Unknown History Allergies Allergy/AdvReac Type Severity Reaction Status Date / Time atenolol Allergy hypertensive Verified 04/17/21 15:15 response carisoprodol [From Soma] Allergy ALGY-Anaphy Verified 04/17/21 15:15 laxis metoprolol Allergy hypertensive Verified 04/17/21 15:15 response lisinopril AdvReac ADR-Cough Verified 04/17/21 15:15 PFSH Acute PFSH: Medical History Abdominal pain Anemia Anxiety and depression COPD (chronic obstructive pulmonary disease) Depressive disorder Embolism of kidney Essential hypertension Family history of ischemic heart disease and other diseases of the circulatory system H/O chronic hepatitis riboviran, interferon Left bundle branch block (LBBB) Lower respiratory infection Medication management Surgical History Status post cholecystectomy Status post hysterectomy Family History Father Diabetes Social History Smoking and tobacco status: current every day smoker Alcohol intake: never Vitals/I&O/Wt Last Vital Signs Temp 98.6 F 04/17/21 13:56 Pulse 93 04/17/21 20:37 Resp 22 H 04/17/21 20:37 BP 142/82 04/17/21 20:37 Pulse Ox 92 04/17/21 20:37 04/17/21 04/17/21 04/17/21 06:59 14:59 22:59 Intake Total 650 / 650 Balance 650 / 650 Weight last 48 hrs Weight 56.699 kg Physical Exam Const: COMMON NORMALS: no acute distress and patient oriented x3 HENMT: COMMON NORMALS: normocephalic HEAD & SCALP: normocephalic Eye: COMMON NORMALS: Equal, round and reactive pupils present and EOMs intact bilaterally Neck/C-Spine: COMMON NORMALS: no JVD Lymph: LYMPHATIC: no lymphadenopathy noted Resp: COMMON NORMALS: No retractions, No use of accessory muscles and clear to auscultation bilaterally AUSCULTATION: wheezes Cardio: COMMON NORMALS: no JVD, regular rate, regular rhythm, S1 normal heart sound present and S2 normal heart sound present RATE: regular rate RHYTHM: regular rhythm HEART SOUNDS: S1 normal heart sound present and S2 normal heart sound present GI: COMMON NORMALS: Normal to inspection, nondistended, normoactive bowel sounds present, Soft to palpation, non-tender, No hepatosplenomegaly present, no masses and no bruits PALPATION: Yes Soft to palpation and Yes No hepatosplenomegaly present Extremity: COMMON NORMALS: capillary refill normal, no clubbing, cyanosis or edema, no calf tenderness and no pedal edema Neuro: COMMON NORMALS: patient oriented x3 Psych: COMMON NORMALS: mental status grossly normal Data : 04/17/21 14:13 04/17/21 15:03 Micro: Microbiology 04/17/21 15:59 Blood Culture - Preliminary Blood SPECIMEN COLLECTED 04/17/21 15:57 Blood Culture - Preliminary Blood SPECIMEN COLLECTED A&P Assessment and plan (1) Mass of mediastinum: Status: Acute (2) Acute respiratory failure with hypoxia: Status: Acute (3) Left upper lobe pulmonary nodule: Status: Acute (4) Postobstructive pneumonia: Status: Acute (5) COPD exacerbation: Status: Acute (6) Hypokalemia: Status: Acute (7) Left-sided carotid artery disease: Status: Acute Plan Acute hypoxic respiratory failure -Secondary to COPD exacerbation -Postobstructive pneumonia Plan: -Admit to general medical floors -Sputum cultures, blood cultures, urine bacterial antigens, Covid PCR, flu -Broad-spectrum antibiotic therapy vancomycin, cefepime -MRSA nares -Solu-Medrol 40 every 8 hours -Ipratropium -Budesonide -Full code -Lovenox for DVT prophylaxis Lung malignancy 2. Confluent soft tissue density in the right upper mediastinum and hilum producing bronchial narrowing and complete right middle lobe atelectasis. This finding is highly suspicious for a malignant neoplasm. 3. 12 x 9 mm spiculated nodule in the left upper lobe is suspicious for malignancy. Possible pulmonary metastasis or primary neoplasm. 4. Mediastinal lymphadenopathy. -History of smoking -Patient would like to follow-up pulmonary in [place] Hypokalemia, received p.o. and IV replacement in the ER, monitor Left common carotid artery stenosis, aspirin, statin, follow-up with cardiothoracic surgery as outpatient Hypertension Chronic kidney disease, received IV fluids in the emergency room Elevated troponins, likely secondary to supply demand ischemia, monitor Elevated BNP, hold off on Lasix therapy as they look euvolemic Attestations Medical Necessity Statement*: Patient requires hospitalization for postobstructive pneumonia, COPD exacerbation, lung malignancy, hypokalemia Coding Level of Care Code Acute Line Servicer for [facility] Diagnoses Mass of mediastinum J98.59 Acute respiratory failure with hypoxia J96.01 Left upper lobe pulmonary nodule R91.1 Postobstructive pneumonia J18.9 COPD exacerbation J44.1 Hypokalemia E87.6 Left-sided carotid artery disease I77.9
[2021-04-17 21:16] LABS: Estmated Average Glucose 111; Hemoglobin A1C 5.5 % (4.0-6.0)
[2021-04-17 21:43] LABS: Troponin 5 6HR 18.12 ng/L (0-10)
[2021-04-17 21:47] LABS: Troponin 5 6HR Delta 1.12 ng/L (0-12)
[2021-04-17] MEDS: atorvastatin 40 mg Tablet PO (21:49)
[2021-04-17] MEDS: pantoprazole 40 mg SDV IVP (21:50)
[2021-04-17] MEDS: hyDRALAzine 10 mg Tablet PO (21:50)
[2021-04-17] MEDS: cefepime 2,000 MG in sodium chloride 0.9% (plus) 50 ML 100 MG IV (21:50)
[2021-04-17 21:52] LABS: Thyroid Stimulating Hormone 0.57 uIU/mL (0.27-4.20)
[2021-04-17] MEDS: enoxaparin 40 mg/0.4 mL Syringe SUBCUT (21:52)
--- NOTE | 2021-04-17 22:12 | PC.NURSE ---
report received patient moved to room 6
--- NOTE | 2021-04-17 23:06 | PC.PHAR ---
Pharmacokinetic dosing service Date: 04/17/21 Time: 2299 Objective: Patient: Delphine Mcmullen Floor: ED-6 Age: 60 yo Serum creatinine: 1.0 mg/dL Height: 64.0 Inches Weight (kg): 56.699 Diagnosis: Relevant medical/social history: Cultures and sensitivities: Other labs: Assessment: IBW (kg): 54.70 Dosing wt(kg): 56.699 Estimated Creatinine clearance (ml/min): 51.7 CRCL method: Cockcroft and Gault using ibw(default). Drug selected: Vancomycin Loading dose (mg): 0 Vd (liters): 51.0 (factor used: 0.9 L/kg) Carrillo (hr-1): 0.047 Half life (hrs): 14.75 Recommended dose: 1000 mg Interval: 24 hrs Infusion time (hrs): 1.5 Predicted peak (mcg/mL): 28.0 Predicted trough (mcg/mL): 9.73 Total body weight is being used for vancomycin dosing. Renal function is stable [ ] /unstable [ ] Recommendations: Give Vancomycin 1000 mg q 24 hrs with an expected Cpeak of 28.0 mcg/ml and an expected Ctrough of 9.73 mcg/ml Renal dosing of other antibiotics (review renal dosing of other medications and list guidelines here): Thank you for the consult, will continue to follow. Signature: Kim Méndez [facility]
[2021-04-17] MEDS: vancomycin 1,000 MG in sodium chloride 0.9% 250 ML 250 MG IV (23:19)
[2021-04-17 23:23] LABS: Adenovirus Not Detected (NOT DETECT); Chlamydia Pneumoniae Not Detected (NOT DETECT); Coronavirus 229E,HKU1,NL63,OC4 Not Detected (NOT DETECT); Human Metapneumovirus Not Detected (NOT DETECT); Human Rhinovirus/Enterovirus Not Detected (NOT DETECT); Influenza A Not Detected (NOT DETECT); Influenza A H1 Not Detected (NOT DETECT); Influenza A H1-2009 Not Detected (NOT DETECT); Influenza A H3 Not Detected (NOT DETECT); Influenza B Not Detected (NOT DETECT); Mycoplasma Pneumoniae Not Detected (NOT DETECT); Parainfluenza Virus Type 1 Not Detected (NOT DETECT); Parainfluenza Virus Type 2 Not Detected (NOT DETECT); Parainfluenza Virus Type 3 Not Detected (NOT DETECT); Parainfluenza Virus Type 4 Not Detected (NOT DETECT); Respiratory Syncytial Virus A Not Detected (NOT DETECT); Respiratory Syncytial Virus B Not Detected (NOT DETECT); SARS-COV-2 Not Detected (NOT DETECT)
[2021-04-18] VITALS (10 sets, daily range): BP systolic 112–121; BP diastolic 64–76; PULSE 78–105; RESP 16–20; TEMP 36.6; O2SAT 93–97
[2021-04-18 03:40] LABS: Basophils % 0.1 %; Hematocrit 33.6 % (37.0-47.0); Hemoglobin 11.2 g/dL (11.5-15.3); Lymphocytes # 0.9 10^3/uL (0.8-4.8); Lymphocytes % 5.2 %; Mean Corpuscular HGB Conc 33.3 g/dL (30.0-36.0); Mean Corpuscular Hemoglobin 26.4 pg (28.0-34.0); Mean Corpuscular Volume 79.2 fl (81-99); Mean Platelet Volume 9.6 fL (7.4-10.4); Monocytes # 0.3 10^3/uL (0.2-0.9); Monocytes % 1.9 %; Neutrophils # 15.24 10^3/uL (1.8-7.7); Neutrophils % 91.8 %; Nucleated Red Blood Cells % 0 %; Platelet Count 499 10^3/cmm (130-400); Red Blood Count 4.24 10^6/uL (4.1-5.3); Red Cell Distribution Width 12.9 % (12.1-15.1); White Blood Count 16.6 10^3/uL (4.0-10.0)
[2021-04-18 03:57] LABS: Lactate (Lactic Acid level) 0.5 mmol/L (0.5-2.2)
[2021-04-18 04:01] LABS: Alanine Aminotransferase 21 U/L (0-33); Albumin Level 3.3 g/dL (3.5-5.2); Alkaline Phosphatase 125 IU/L (35-105); Anion Gap 17.1 (5-19); Aspartate Amino Transferase 15 U/L (0-32); Blood Urea Nitrogen 7 mg/dL (8-23); C Reactive Protein 140.6 mg/L (0.0-4.9); Calcium 8.2 mg/dL (8.5-10.5); Carbon Dioxide 20 mmol/L (22-29); Chloride 100 mmol/L (98-107); Globulin 3.4 g/dL (1.3-4.6); Glucose 144 mg/dL (65-115); Magnesium 1.9 mg/dL (1.7-2.3); Osmolality Calculated 279 mOsm/kg (285-295); Phosphorus 2.7 mg/dL (2.5-4.5); Potassium 3.1 mmol/L (3.5-5.1); Sodium 134 mmol/L (136-145); Total Bilirubin 0.3 mg/dL (0.15-1.2); Total Protein 6.7 g/dL (6.6-8.7)
[2021-04-18 04:07] LABS: INR 1.04 (0.8-1.2)
[2021-04-18 04:12] LABS: NT Pro B Type Natriuretic Pept 2647 pg/mL (0-125); Procalcitonin 0.15 ng/mL (0-0.5)
[2021-04-18 04:23] LABS: Creatine Phosphokinase 22 U/L (26-192)
[2021-04-18 04:42] LABS: ABG PCO2 29.7 mmHg (35-45); ABG PH Result 7.48 (7.35-7.45); Arterial Blood Gas Hematocrit 35.4 % (37-47); Base Excess ABG -0.8 mmol/L (-2.0-2.0); Blood Gas Allen Test Pos; Blood Gas Sample Site Radial, right; Blood Gas Sample Type Arterial; PO2 ABG 76.4 mmHg (80.0-100.0)
[2021-04-18] MEDS: budesonide 0.5 mg/2 mL Neb INHALATION (07:48)
[2021-04-18] MEDS: ipratropium-albuterol 3 mL Neb INHALATION ×2 (07:48→11:31)
[2021-04-18] MEDS: citalopram 20 mg Tablet 10 MG PO (08:27)
[2021-04-18] MEDS: docusate sodium 100 mg Capsule PO (08:27)
[2021-04-18] MEDS: aspirin 81 mg EC Tablet PO (08:27)
[2021-04-18] MEDS: hyDRALAzine 10 mg Tablet PO (08:27)
[2021-04-18] MEDS: cloNIDine 0.1 mg Tablet PO (08:27)
[2021-04-18] MEDS: amlodipine 10 mg Tablet PO (08:28)
[2021-04-18] MEDS: cefepime 2,000 MG in sodium chloride 0.9% (plus) 50 ML 100 MG IV (10:44)
[2021-04-18] MEDS: ALPRAZolam 0.5 mg Tablet PO (12:12)
--- NOTE | 2021-04-18 12:22 | PM.DCS ---
Discharge Providers Date of Admission: 04/17/21 19:55 Date of Discharge: April 18, 2021 Attending Provider at Admission: Ta Fierro MD Attending Provider at Discharge: Brett Gardner Primary Care Provider: ISIDRA Martinez Diagnoses at Discharge Discharge Diagnosis (1) Mass of mediastinum: Status: Acute (2) Acute respiratory failure with hypoxia: Status: Acute (3) Left upper lobe pulmonary nodule: Status: Acute (4) Postobstructive pneumonia: Status: Acute (5) COPD exacerbation: Status: Acute (6) Hypokalemia: Status: Acute (7) Left-sided carotid artery disease: Status: Acute Reason for Visit Reason for Visit: SOB Hospital Course Hospital Course Pleasant 60-year-old lady current smoker with history of COPD, HTN, anxiety and depression, history of chronic hepatitis, chronic LBBB, chronic kidney disease, was admitted for assessment management of progressive increasing shortness of breath, with productive cough, on imaging with finding of confluent soft tissue density in the right upper mediastinum and hilum producing bronchial narrowing incomplete right middle lobe atelectasis, with finding highly suspicious for malignant neoplasm. Additionally 12 x 9 mm spiculated nodule in the left upper lobe suspicious for malignancy. Possible pulmonary metastasis or primary neoplasm. Mediastinal lymphadenopathy noted. No PE seen. Incidentally seen also near occlusion at the origin of left common carotid artery. Additional incidental findings in full report. Due to COPD exacerbation, possible postobstructive pneumonia with new finding of possible malignancy was started on antibiotic coverage with cefepime, vancomycin, received treatment with IV steroid, initially 3 L nasal cannula oxygen, but weaned off down to room air, and today feeling significantly better. Requested to be discharged home as she and her daughter will be moving to [place] where she is wanting to resume assessment of the new finding of lung mass with service center specialist there. Understands to seek assessment soon as possible for treatment of malignancy as without treatment pneumonia may not be able to resolve. Home O2 evaluation was obtained, should not qualify for oxygen, is discharged with course of antibiotic with Levaquin and continuation of doxycycline, as well as with prednisone taper for COPD exacerbation. She knows to return to hospital due to potential for worsening, as understands there is potential for progression to severe pneumonia with postobstructive component due to the presence of malignancy with noted airway compression. COVID-19 PCR was negative. Rapid flu was negative. MRSA PCR was negative. Urine bacterial antigens including Legionella were negative. She is started on atorvastatin, aspirin, and is asked to quit smoking due to the above, as well as noted incidentally left common carotid artery stenosis. Would benefit from additional assessment by carotid ultrasound and follow-up with vascular/cardiothoracic surgery. Hypokalemia replaced. May benefit from follow-up with stress testing given mild abnormality of troponin (18) with risk factors of coronary disease. Discharge Data Studies Completed and Pending Completed Studies During Hospitalization Category Date Time Status CTA chest [CT angio chest PE protcl 15637] Urgent Cat Scan 04/17/21 16:55 Completed XR chest 1V portable [id number] Urgent Exams 04/17/21 14:09 Completed Pending at discharge Category Date Time Status Arterial Blood Gas W/O Coox AM LABS Lab 04/19/21 04:00 Ordered Arterial Blood Gas W/O Coox AM LABS Lab 04/20/21 04:00 Ordered Blood Culture Stat Lab 04/17/21 15:59 Results C Reactive Protein AM LABS Lab 04/19/21 04:00 Ordered C Reactive Protein AM LABS Lab 04/20/21 04:00 Ordered Complete Blood Count w/Auto AM LABS Lab 04/19/21 04:00 Ordered Complete Blood Count w/Auto AM LABS Lab 04/20/21 04:00 Ordered Comprehensive Metabolic Panel AM LABS Lab 04/19/21 04:00 Ordered Comprehensive Metabolic Panel AM LABS Lab 04/20/21 04:00 Ordered Coronavirus PCR Routine Lab 04/17/21 21:33 Results Creatine Phosphokinase AM LABS Lab 04/19/21 04:00 Ordered Creatine Phosphokinase AM LABS Lab 04/20/21 04:00 Ordered Lactate (Lactic Acid level) AM LABS Lab 04/19/21 04:00 Ordered Lactate (Lactic Acid level) AM LABS Lab 04/20/21 04:00 Ordered Magnesium AM LABS Lab 04/19/21 04:00 Ordered Magnesium AM LABS Lab 04/20/21 04:00 Ordered NT Pro B Type Natriuretic Pept QAM Lab 04/19/21 06:00 Ordered NT Pro B Type Natriuretic Pept QAM Lab 04/20/21 06:00 Ordered Phosphorus AM LABS Lab 04/19/21 04:00 Ordered Phosphorus AM LABS Lab 04/20/21 04:00 Ordered Procalcitonin AM LABS Lab 04/19/21 04:00 Ordered Procalcitonin AM LABS Lab 04/20/21 04:00 Ordered Prothrombin Time INR AM LABS Lab 04/19/21 04:00 Ordered Prothrombin Time INR AM LABS Lab 04/20/21 04:00 Ordered Sputum Culture and Gram Stain Stat Lab 04/17/21 20:46 Uncollected Radiology Impressions Chest X-Ray 04/17/21 14:09 IMPRESSION: Opacification noted in the right mid and lower lung zone suggestive of pneumonia. Chest CTA 04/17/21 16:55 IMPRESSION: 1. No pulmonary embolism. 2. Confluent soft tissue density in the right upper mediastinum and hilum producing bronchial narrowing and complete right middle lobe atelectasis. This finding is highly suspicious for a malignant neoplasm. 3. 12 x 9 mm spiculated nodule in the left upper lobe is suspicious for malignancy. Possible pulmonary metastasis or primary neoplasm. 4. Mediastinal lymphadenopathy. 5. Near occlusion at the origin of the left common carotid artery. 6. Incidental findings above. ADDENDUM: 04/17/21 [id number] THIS REPORT CONTAINS FINDINGS THAT MAY BE CRITICAL TO PATIENT CARE. The findings were verbally communicated via telephone conference with Dr. Eaton at 6:43 PM LACTATION NURSE on 04/17/2021. The findings were acknowledged and understood. Laboratory Results WBC 16.6 10^3/uL (4.0-10.0) H 04/18/21 03:35 RBC 4.24 10^6/uL (4.1-5.3) 04/18/21 03:35 Hgb 11.2 g/dL (11.5-15.3) L 04/18/21 03:35 Hct 33.6 % (37.0-47.0) L 04/18/21 03:35 MCV 79.2 fl (81-99) L 04/18/21 03:35 MCH 26.4 pg (28.0-34.0) L 04/18/21 03:35 MCHC 33.3 g/dL (30.0-36.0) 04/18/21 03:35 RDW 12.9 % (12.1-15.1) 04/18/21 03:35 Plt Count 499 10^3/cmm (130-400) H 04/18/21 03:35 MPV 9.6 fL (7.4-10.4) 04/18/21 03:35 Neut % (Auto) 91.8 % 04/18/21 03:35 Lymph % (Auto) 5.2 % 04/18/21 03:35 [place] % (Auto) 1.9 % 04/18/21 03:35 Eos % (Auto) 0.0 % 04/18/21 03:35 Baso % (Auto) 0.1 % 04/18/21 03:35 Neut # (Auto) 15.24 10^3/uL (1.8-7.7) H 04/18/21 03:35 Lymph # (Auto) 0.9 10^3/uL (0.8-4.8) 04/18/21 03:35 [place] # (Auto) 0.3 10^3/uL (0.2-0.9) 04/18/21 03:35 Eos # (Auto) 0.0 10^3/uL (0.0-0.8) 04/18/21 03:35 Baso # (Auto) 0.0 10^3/uL (0.0-0.1) 04/18/21 03:35 Nucleated RBC % (auto) 0 % 04/18/21 03:35 Nucleated RBCs # 0.0 /100WBC 04/18/21 03:35 PT 14.00 SECONDS (12.1-14.9) 04/18/21 03:43 INR 1.04 (0.8-1.2) 04/18/21 03:43 D-Dimer 3.48 ug/mIFEU (0-0.59) H 04/17/21 16:16 Specimen Type Arterial 04/18/21 04:30 Sample Site Radial, right 04/18/21 04:30 ABG pH 7.48 (7.35-7.45) H 04/18/21 04:30 ABG pCO2 29.7 mmHg (35-45) L 04/18/21 04:30 ABG pO2 76.4 mmHg (80.0-100.0) L 04/18/21 04:30 ABG HCO3 22.0 mmol/L (22-26) 04/18/21 04:30 ABG Base Excess -0.8 mmol/L (-2.0-2.0) 04/18/21 04:30 Mckay Test Pos 04/18/21 04:30 Hematocrit 35.4 % (37-47) L 04/18/21 04:30 O2 Delivery Device None 04/18/21 04:30 O2 Liters/Min 3.0 % 04/17/21 14:45 FiO2 21.0 % 04/18/21 04:30 Pharmacy Billing Adjudicator ID Paco 04/18/21 04:30 Sodium 134 mmol/L (136-145) L 04/18/21 03:35 Potassium 3.1 mmol/L (3.5-5.1) L 04/18/21 03:35 Chloride 100 mmol/L (98-107) 04/18/21 03:35 Carbon Dioxide 20 mmol/L (22-29) L 04/18/21 03:35 Anion Gap 17.1 (5-19) 04/18/21 03:35 BUN 7 mg/dL (8-23) L 04/18/21 03:35 Creatinine 0.6 mg/dL (0.5-0.9) 04/18/21 03:35 GFR Calculation 102.0 mL/min (90-130) 04/18/21 03:35 Glucose 144 mg/dL (65-115) H 04/18/21 03:35 Estimat Average Glucose 111 04/17/21 14:13 Hemoglobin A1c 5.5 % (4.0-6.0) 04/17/21 14:13 Calculated Osmolality 279 mOsm/kg (285-295) L 04/18/21 03:35 Lactic Acid 1.2 mmol/L (0.5-2.2) 04/17/21 15:57 Lactate 0.5 mmol/L (0.5-2.2) 04/18/21 03:35 Calcium 8.2 mg/dL (8.5-10.5) L 04/18/21 03:35 Phosphorus 2.7 mg/dL (2.5-4.5) 04/18/21 03:35 Magnesium 1.9 mg/dL (1.7-2.3) 04/18/21 03:35 Total Bilirubin 0.3 mg/dL (0.15-1.2) 04/18/21 03:35 AST 15 U/L (0-32) 04/18/21 03:35 ALT 21 U/L (0-33) 04/18/21 03:35 Alkaline Phosphatase 125 IU/L (35-105) H 04/18/21 03:35 Creatine Kinase 22 U/L (26-192) L 04/18/21 03:35 Troponin T Baseline 17 ng/L (0-10) H 04/17/21 15:03 Troponin T 120 Minute 18.03 ng/L (0-10) H 04/17/21 17:45 Delta Troponin T 1.03 ABS# (0-10) 04/17/21 17:45 Troponin T Hi Sens 6Hr 18.12 ng/L (0-10) H 04/17/21 21:02 Troponin T Hi Sens 6Hr Delta 1.12 ng/L (0-12) 04/17/21 21:02 C-Reactive Protein 140.6 mg/L (0.0-4.9) H 04/18/21 03:35 NT-Pro-B Natriuret Pep 2647 pg/mL (0-125) H 04/18/21 03:35 Total Protein 6.7 g/dL (6.6-8.7) 04/18/21 03:35 Albumin 3.3 g/dL (3.5-5.2) L 04/18/21 03:35 Globulin 3.4 g/dL (1.3-4.6) 04/18/21 03:35 Procalcitonin 0.15 ng/mL (0-0.5) 04/18/21 03:35 TSH 0.57 uIU/mL (0.27-4.20) 04/17/21 15:03 Nasal Influ A H1 2008 PCR Not detected (NOT DETECT) 04/17/21 21:33 Coronavirus 229E (PCR) Not detected (NOT DETECT) 04/17/21 21:33 Influenza A (H1) PCR Not detected (NOT DETECT) 04/17/21 21:33 Influenza A (H3) PCR Not detected (NOT DETECT) 04/17/21 21: Influenza Type A (PCR) Not detected (NOT DETECT) 04/17/21 21: Influenza Type B (PCR) Not detected (NOT DETECT) 04/17/21 21:33 SARS-CoV-2 (PCR) Not detected (NOT DETECT) 04/17/21 21:33 SARS-CoV-2 Ag (Rapid) Negative (Negative) 04/17/21 15:10 Vitals Last Vital Signs Temp 97.9 F 04/18/21 12:12 Pulse 98 04/18/21 12:12 Resp 18 04/18/21 12:12 BP 112/66 04/18/21 12:12 Pulse Ox 94 04/18/21 12:12 Discharge Plan Discharge Patient Disposition: Home Condition: Stable Prescriptions: New atorvastatin 40 mg Tablet 40 mg PO BEDTIME Qty: 90 0RF aspirin 81 mg Tablet,Delayed Release (Dr/Ec) 81 mg PO DAILY Qty: 90 0RF levofloxacin 750 mg tablet 750 mg PO DAILY 7 Days Qty: 7 0RF prednisone 20 mg tablet See Rx Instructions .ROUTE .COMPLEX Qty: 20 0RF Rx Instructions: 3 tab daily for 3 days, then 2 tab for 3 days, then 1 tab for 3 days, then 1/2 tab for 3 days. potassium chloride 20 mEq tablet extended release 20 meq PO DAILY Qty: 5 0RF Continued albuterol sulfate [ProAir HFA] 90 mcg/actuation HFA aerosol inhaler 1 puff INHALATION ONCE 90 Days Qty: 8.5 1RF ascorbate calcium (vitamin C) 500 mg tablet 500 mg PO BID 30 Days Qty: 60 0RF citalopram 10 mg tablet 10 mg PO ONCE 30 Days Qty: 30 1RF losartan 100 mg tablet 100 mg PO DAILY Qty: 180 1RF Rx Instructions: 1.5 to 2 tablets daily Spiriva with HandiHaler 18 mcg capsule, w/inhalation device 1 cap inhalation DAILY Qty: 30 2RF Rx Instructions: puncture 1 cap using device; one dose = 2 inhalations doxycycline hyclate 100 mg capsule 100 mg PO BID Qty: 20 0RF amlodipine 10 mg tablet 10 mg PO DAILY 0RF hydrochlorothiazide 12.5 mg capsule 12.5 mg PO DAILY 0RF clonidine HCl 0.1 mg tablet 0.1 mg PO BID 0RF Discontinued prednisone 20 mg tablet 40 mg PO .Daily in A.M. 5 Days Qty: 10 0RF Discharge Orders: Discharge Order (Routine); Ordered 04/18/21 Ordered By: Brett Gardner Referrals: Primary, provider [Other] - 4-7 days (Soonest available appointment) ADAM Tamayo, [employer] [Primary Care Provider] - None Patient Instructions: Prednisone (By mouth), Aspirin (By mouth), Atorvastatin (By mouth), Levofloxacin (By mouth), How to Stop Smoking (GEN), Cigarette Smoking and Your Health (GEN), Carotid Artery Disease (GEN), COPD (Chronic Obstructive Pulmonary Disease) (GEN), Bacterial Pneumonia (GEN) Activity Restrictions/Additional Instructions: Please establish with primary provider soon as possible when you moved to the new location to allow prompt referral for diagnosis and further management of right lung hilar mass suspicious of malignancy, as well as left upper lung spiculated nodule suspicious of malignancy. Prompt diagnosis and treatment is important test without treatment there may be persistence or worsening of pneumonia, risk of systemic sepsis and other complications Due to concomitant pneumonia please complete course of antibiotic and steroid taper. In case your condition worsens, you start experiencing high fever, worsening shortness of breath, or other concerning symptoms, please seek medical attention. Please also discuss with your primary doctor at next available appointment follow-up regarding incidentally seen near occlusion of left common carotid artery. Please continue aspirin 81 mg a day, you are started on cholesterol medication. Discussed referral with your primary doctor for further work-up with carotid ultrasound, and referral to vascular surgery or cardiothoracic surgery. Please have your primary doctor follow-up with your potassium level due to low potassium noted in the hospital. Have your primary doctor follow-up regarding chronic kidney disease. Discuss referral for stress test with your primary doctor once you recover from pneumonia due to noted mild elevation of troponin to closer assess for possible underlying coronary disease. Please stop smoking. Smoking is a risk factor for cardiovascular disease, lung disease as well as cancer. Continued smoking will lead to continued worsening of lung disease, COPD, may further hinder your recovery from possible cancer, and lead to further worsening of cardiovascular disease with carotid artery stenosis, with risk of stroke, increased risk of heart attack and other illness. Discharge Attestations Time Spent in Discharge Care*: greater than 30 min Quality Metrics Clinical Quality Measures [ No reported AMI, CVA or VTE this stay] Coding Level of Care Code Acute Chg FW DC note Diagnoses Mass of mediastinum J98.59 Acute respiratory failure with hypoxia J96.01 Left upper lobe pulmonary nodule R91.1 Postobstructive pneumonia J18.9 COPD exacerbation J44.1 Hypokalemia E87.6 Left-sided carotid artery disease I77.9
--- NOTE | 2021-04-19 07:27 | PC.OT ---
OT EVALUATION ORDERS RECEIVED. PATIENT DISCHARGED BEFORE EVALUATION COULD BE COMPLETED.
[2021-04-19 10:35] LABS: Results from Genmark
== END 2021-04-18 14:00 | disposition home or self-care (01) ==
LOC: ER 19:25 → ER IP 04-18 09:09
PROVIDERS: Admitting Provider Family Medicine; Emergency Provider Emergency Medicine; PCP Nurse Practitioner Family; Visit Provider Internal Medicine
DX: J98.59 Other diseases of mediastinum, not elsewhere classified (principal); J96.01 Acute respiratory failure with hypoxia; R91.1 Solitary pulmonary nodule; J18.9 Pneumonia, unspecified organism; J44.1 Chronic obstructive pulmonary disease with (acute) exacerbation; E87.6 Hypokalemia; I77.9 Disorder of arteries and arterioles, unspecified; F17.210 Nicotine dependence, cigarettes, uncomplicated; F41.9 Anxiety disorder, unspecified; F32.9 Major depressive disorder, single episode, unspecified; Z86.19 Personal history of other infectious and parasitic diseases; I12.9 Hypertensive chronic kidney disease with stage 1 through stage 4 chronic kidney disease, or unspecified chronic kidney disease; N18.9 Chronic kidney disease, unspecified; I44.7 Left bundle-branch block, unspecified; Z82.49 Family history of ischemic heart disease and other diseases of the circulatory system
CPT/HCPCS: 36415; 36600; 71045; 71275; 80053; 82550; 82803; 83036; 83605; 83735; 83880; 84100; 84145; 84443; 84484; 85025; 85378; 85610; 86140; 86403; 87040; 87426; 87449; 87631; 87635; 87641; 93005; 94640; 96365; 96367; 96372; 96375; 99285; C9113; G0378; J0692; J1650; J1956; J2060; J2920; J2930; J3370; J3480; J7030; J7040; J7050; J7626; Q9967